=== PATIENT | female | born 2000 | race African-American/Black ===

== ENCOUNTER 2021-11-08 13:02 | Emergency (ER) | payer SELFPAY ==
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
[2021-11-08 13:02] VITALS: BP 104/76; PULSE 65; RESP 16; TEMP 37.3; O2SAT 100
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
[2021-11-08] MEDS: IBUPROFEN 600 MG TABLET PO (16:14)
[2021-11-08] MEDS: HYDROcodone/acetaminophen (*CRX) 5-325 MG TABLET 1 TAB PO (16:14)
[2021-11-08 17:17] VITALS: BP 107/65; PULSE 76; RESP 16; O2SAT 100
== END 2021-11-08 17:18 | disposition home or self-care (01) ==
PROVIDERS: Emergency Provider Emergency Medicine
DX: S29.9XXA Unspecified injury of thorax, initial encounter (principal); R07.89 Other chest pain; V63.5XXA Driver of heavy transport vehicle injured in collision with car, pick-up truck or van in traffic accident, initial encounter
CPT/HCPCS: 71101; 72072; 99284; A9270